=== PATIENT | female | born 1980 | race Caucasian/White ===

== ENCOUNTER 2016-06-19 04:49 | Inpatient (IN) ==
--- NOTE | 2016-06-18 20:02 | HISTORY AND PHYSICAL ---
ADMITTING DIAGNOSES: 1. Term . 2. Previous section requesting repeat section. 3. macrosomia. 4. Undesired fertility. HISTORY OF PRESENT ILLNESS: In summary, Edilma Zamora is a 36-year-old 2, para 1-0-0-1 who is at term gestation. Her blood type is A positive. Rubella immune. Hepatitis B surface antigen, HIV, and group B strep were normal. She has had uncomplicated . She had an early Glucola that she failed, this was followed by a 3-hour GTT which she also failed. She was started on diet and DiaBeta and was felt she was a class 2 diabetic. She has also had frequent UTIs during the . She had an ultrasound on May 29 which gave an estimated weight 9 pounds and 1 ounce. This is 98 percentile. Her first ended in a section for breech presentation. She is now being admitted to the hospital for repeat due to previous and macrosomia. She also desires tubal sterilization. She understands that this is a permanent and nonreversible procedure. She is also aware of the failure rate of tubal sterilization. We discussed alternative methods of control. PAST MEDICAL HISTORY: Her obstetrical history is as above. Otherwise there are no chronic medical or surgical illnesses. CURRENT MEDICATIONS: DiaBeta and vitamins. ALLERGIES: None. PHYSICAL EXAMINATION: GENERAL: Shows a obese gravid female. Weight is 310. She has had 30+ pounds of weight gain during this . CARDIOVASCULAR: Regular rate and rhythm without murmurs, rubs, or gallops. PULMONARY: Clear. BREASTS: No masses. ABDOMEN: Gravid. Cervix is closed. EXTREMITIES: 1+ edema. IMPRESSION: 1. Term . 2. Previous section requesting repeat section. 3. macrosomia. 4. Gestational diabetes. 5. Undesired fertility. PLAN: Edilma will be admitted to the hospital, undergo repeat and tubal sterilization. Risks of the surgery including pain, bleeding, infection, bowel or bladder injury, and anesthesia complications have been discussed. We have also discussed the failure rate and nonreversible nature of tubal sterilization. cc: Sunny Kevin MD
[2016-06-19] MEDS ORDERED: PEPCID PO ONE (04:55)
[2016-06-19] MEDS ORDERED: KEFZOL 1 GM/D5W 1 GM/50 ML IVPB IV PRN (04:55)
[2016-06-19] MEDS ORDERED: LR 1,000 ML IV SCH (04:55)
[2016-06-19] MEDS ORDERED: REGLAN PO ONE (04:55)
[2016-06-19] MEDS ORDERED: SODIUM CHLORIDE 0.9% INJ ONE (06:15)
[2016-06-19] MEDS ORDERED: REGLAN IV ONE (06:15)
[2016-06-19] MEDS ORDERED: BICITRA PO ONE (06:15)
[2016-06-19] MEDS ORDERED: PEPCID IV ONE (06:15)
[2016-06-19] MEDS ORDERED: PITOCIN ONE (06:25)
[2016-06-19] MEDS ORDERED: EPHEDRINE ONE (06:31)
[2016-06-19] MEDS ORDERED: FENTANYL ONE (06:32)
[2016-06-19] MEDS ORDERED: ZOFRAN ONE (06:32)
[2016-06-19] MEDS ORDERED: DURAMORPH ONE (06:32)
[2016-06-19 06:41] LABS: MANUAL DIFF NEEDED? NO; URINE SOURCE VOIDED
[2016-06-19 06:47] LABS: BASO% 0.1 % (0.0-0.8); EOS# 0.18 X1000 (0.0-0.7); EOS% 2.1 % (0.0-10.0); HEMATOCRIT 28.1 % (37.0-47.0); HEMOGLOBIN 8.7 g/dL (12.0-16.0); IMM GRAN# 0.08 X1000 (0.0-0.04); IMM GRAN% 0.9 % (0.0-0.5); LYMPH# 1.75 X1000 (1.2-3.4); LYMPH% 20.7 % (20.5-51.1); MCH 27.5 PG (27-31); MCV 88.9 FL (81-99); MONO# 0.76 X1000 (0.11-0.59); MPV 9.4 FL (7.4-10.4); NEUT% 67.2 % (42.2-75.2); PLT 216 X1000 (130-400); RBC 3.16 XMIL (4.2-5.4)
[2016-06-19] MEDS ORDERED: PITOCIN 20 UNITS/LR 20 UNITS/1,000 ML IV.SOLN ONE (06:54)
[2016-06-19] MEDS ORDERED: METHERGINE ONE (06:55)
[2016-06-19] MEDS ORDERED: KEFZOL 1 GM/D5W 1 GM/50 ML IVPB IV ONE (07:30)
[2016-06-19] MEDS ORDERED: NORCO-5 PO PRN (08:05)
[2016-06-19] MEDS ORDERED: HYDROXYZINE PO PRN (08:05)
[2016-06-19] MEDS ORDERED: PHENERGAN IM PRN ×2 (08:05→23:21)
[2016-06-19] MEDS ORDERED: M-M-R II VACCINE SUBQ ONE (08:05)
[2016-06-19] MEDS ORDERED: PERCOCET-5 PO PRN (08:05)
[2016-06-19] MEDS ORDERED: AMBIEN PO PRN ×2 (08:05→23:21)
[2016-06-19] MEDS ORDERED: MOTRIN PO PRN (08:05)
[2016-06-19] MEDS ORDERED: DEMEROL IM PRN ×2 (08:05→23:21)
[2016-06-19] MEDS ORDERED: HYDROXYZINE IM PRN (08:05)
[2016-06-19] MEDS ORDERED: PITOCIN 20 UNITS/LR 20 UNITS/1,000 ML IV.SOLN IV ONE (08:05)
[2016-06-19] MEDS ORDERED: DULCOLAX PR PRN ×2 (08:05→23:21)
[2016-06-19] MEDS ORDERED: DEMEROL PO PRN ×4 (08:05→23:21)
[2016-06-19] MEDS ORDERED: NORCO-10 PO PRN (08:05)
[2016-06-19] MEDS ORDERED: BOOSTRIX VACCINE IM ONE (08:05)
[2016-06-19] MEDS ORDERED: PITOCIN IM PRN ×2 (08:05→23:21)
[2016-06-19] MEDS ORDERED: CYTOTEC PO PRN ×2 (08:05→23:21)
[2016-06-19] MEDS ORDERED: MYLICON PO PRN (08:05)
[2016-06-19] MEDS ORDERED: PERCOCET-10 PO PRN (08:05)
[2016-06-19 08:07] LABS: BILIRUBIN URINE NEGATIVE (NEGATIVE); BLOOD URINE NEGATIVE (NEGATIVE); CLARITY CLEAR (CLEAR); COLOR YELLOW; LEUKOCYTES URINE TRACE (NEGATIVE); NITRITE URINE NEGATIVE (NEGATIVE); PH URINE 6.5; PROTEIN URINE TRACE mg/dL (NEGATIVE); SP GRAVITY URINE 1.015; UROBILINOGEN URINE NORMAL
[2016-06-19] MEDS ORDERED: PITOCIN 10 UNITS/LR 10 UNIT/1,000 ML IV.SOLN IV SCH (08:15)
[2016-06-19] MEDS ORDERED: TORADOL IV SCH (08:15)
[2016-06-19] MEDS ORDERED: ZOFRAN ODT PO PRN (08:38)
[2016-06-19] MEDS ORDERED: NARCAN INJ PRN (08:38)
[2016-06-19] MEDS ORDERED: ZOFRAN IV PRN ×3 (08:38→08:39)
[2016-06-19] MEDS ORDERED: BENADRYL IV PRN (08:38)
[2016-06-19] MEDS ORDERED: DILAUDID IV PRN (08:39)
[2016-06-19] MEDS ORDERED: MYLICON PO SCH (09:00)
--- NOTE | 2016-06-19 10:44 | OPERATIVE NOTE ---
PROCEDURE DATE: 06/19/2016 OPERATION PERFORMED: Repeat low transverse section and bilateral fimbriectomy. SURGEON: Sunny Kevin MD PREOPERATIVE DIAGNOSES: 1. Term . 2. Previous section, requesting repeat section. 3. Gestational diabetes. 4. Undesired fertility. POSTOPERATIVE DIAGNOSES: 1. Term . 2. Previous section, requesting repeat section. 3. Gestational diabetes. 4. Undesired fertility. FINDINGS: At 0733, a 10 pound 2 ounce male was delivered in a vertex presentation. scores were 10 at one minute and 10 at five minutes. DESCRIPTION OF PROCEDURE: The patient was taken back to the operating room, where a spinal anesthetic was placed by Dr. Hernández. She was then placed in a supine position with a left lateral tilt. The abdomen was prepped and draped in the usual fashion. A Hammonds catheter was in the urinary bladder. Once satisfactory conduction anesthesia was obtained, a repeat Pfannenstiel incision was made. This incision was taken down to the fascia. The fascia was excised transversely. The underlying rectus muscles were bluntly and sharply dissected free. The rectus muscle was in midline. The peritoneum was entered. The lower uterine segment identified. A bladder flap was created. A low transverse incision was made across the myometrium. This incision was extended laterally using digital pressure. Membranes were ruptured, revealing a copious amount of clear fluid. The infant's vertex was delivered through this incision without difficulty. The shoulders and body delivered without dystocia. The oropharynx was bulb suctioned. The cord was clamped and cut. The was handed to the nurses for further care and evaluation. Cord blood was obtained. The placenta was manually removed. The uterus was delivered onto the abdominal wall and explored. All membrane fragments were removed. The myometrium was then reapproximated using a running #1 chromic interlocking suture, followed by several [id number] chromic sutures for complete hemostasis across the suture line. At this time, a bilateral fimbriectomy was performed without difficulty. The uterus was placed back into pelvic cavity. Uterine incisions and tubal ligation sites were examined and found to be hemostatic. First and 2nd sponge, instrument, and needle counts had been reported as correct. At this point, the peritoneum was closed using a running chromic suture and the fascia was closed using running Vicryl sutures x2. Third and final sponge, instrument, and needle count was reported as correct. A 3-0 Vicryl suture was used to reapproximate the adipose tissue and the skin edges were reapproximated using a running 3-0 Monocryl. Blood loss was estimated at 500 mL. There were no complications. The patient went to the recovery room in stable condition. cc: Sunny Kevin MD
[2016-06-19] MEDS: PRECARE PO SCH (18:23)
[2016-06-19] MEDS: FERROUS SULFATE PO SCH (18:23)
[2016-06-19] MEDS: PITOCIN 10 UNITS/LR 10 UNIT/1,000 ML IV.SOLN IV SCH (19:34)
[2016-06-19] MEDS ORDERED: PERICOLACE PO SCH (21:00)
[2016-06-19] MEDS: TORADOL IV SCH (23:43)
[2016-06-19] MEDS: MYLICON PO PRN (23:44)
[2016-06-20] MEDS: PITOCIN 10 UNITS/LR 10 UNIT/1,000 ML IV.SOLN IV SCH (03:26)
[2016-06-20] MEDS: TORADOL IV SCH ×3 (06:07→17:17)
[2016-06-20 06:53] LABS: HEMATOCRIT 25.3 % (37.0-47.0); HEMOGLOBIN 7.6 g/dL (12.0-16.0); MCV 89.7 FL (81-99); MPV 9.3 FL (7.4-10.4); RBC 2.82 XMIL (4.2-5.4)
[2016-06-20] MEDS ORDERED: LR 1,000 ML IV SCH (08:05)
[2016-06-20] MEDS: FERROUS SULFATE PO SCH (09:19)
[2016-06-20] MEDS: MYLICON PO SCH ×4 (09:19→20:30)
[2016-06-20] MEDS: PRECARE PO SCH (09:20)
[2016-06-20] MEDS ORDERED: PERCOCET-5 PO PRN (13:00)
[2016-06-20] MEDS: PERCOCET-10 PO PRN ×3 (13:26→22:03)
[2016-06-20] MEDS: MYLICON PO PRN (15:18)
[2016-06-20] MEDS ORDERED: PERICOLACE PO SCH (21:00)
[2016-06-20] MEDS: MOTRIN PO PRN (22:04)
--- NOTE | 2016-06-21 06:55 | DISCHARGE SUMMARY ---
ADMISSION DATE: 06/19/2016 DISCHARGE DATE: 06/21/2016 ADMITTING DIAGNOSES: 1. Term . 2. Previous section. Requesting repeat section. 3. macrosomia. 4. Undesired fertility. PRINCIPAL DIAGNOSES: 1. Term . 2. Previous section. Requesting repeat section. 3. macrosomia. 4. Undesired fertility. PRINCIPAL PROCEDURE: Repeat low-transverse section and tubal sterilization. SUMMARY: Edilma Zamora is a 36-year-old, 2, para 1-0-0-1, at term gestation. She is a class 2 diabetic and has been on DiaBeta. Ultrasound showed macrosomia. She previously had a section. She desired tubal sterilization. She was, therefore, admitted to the hospital and underwent a repeat low-transverse section and tubal sterilization. She delivered a male infant weighing 10 pounds and 2 ounces with Apgars of 10 at 1 minute and 10 at 5 minutes. There were no intraoperative complications. Following delivery, the patient did well, and she remained afebrile and all vital signs were stable. She had an admission hemoglobin and hematocrit of 8.7/28.1. At discharge, hemoglobin and hematocrit being 7.2/25.3. On the day of discharge, her cardiac and pulmonary examinations were normal. Bowel and bladder function was normal. Her incision was clean and dry. She was having scant vaginal bleeding. Ms. Zamora is being discharged today and will be seen back in the office in 1 week. Routine discharge instructions, activity limitations, and precautions were discussed, and she is given prescriptions for Percocet 10 and Motrin for postoperative pain. She will continue iron and vitamins. cc: Sunny Kevin MD
[2016-06-21 07:31] VITALS: BP 131/69
[2016-06-21] MEDS: MYLICON PO PRN (07:43)
[2016-06-21] MEDS: MYLICON PO SCH (08:55)
[2016-06-21] MEDS: PRECARE PO SCH (08:55)
[2016-06-21] MEDS: FERROUS SULFATE PO SCH (08:56)
[2016-06-21] MEDS: MOTRIN PO PRN (08:56)
[2016-06-21] MEDS: PERCOCET-10 PO PRN (08:56)
== END 2016-06-21 11:40 | disposition home or self-care (01) ==
LOC: P.LD 04:49 → P.WC 09:35
PROVIDERS: ADMIT Obstetrics & Gynecology; ATTEND Obstetrics & Gynecology